=== PATIENT | female | born 2000 | race Asian ===

== ENCOUNTER 2019-02-12 19:44 | Emergency (ER) | payer OTHER, SELFPAY ==
[2019-02-12 19:49] VITALS: BP 120/72; PULSE 105; RESP 16; TEMP 36.5; O2SAT 100; BMI 18.6
[2019-02-12 20:16] LABS: Influenza A and B by PCR Rapid Negative (Negative)
--- NOTE | 2019-02-12 21:50 | ED.URI ---
HPI - URI/Sore Throat General Chief Complaint: Upper Respiratory Symptoms Stated Complaint: SORE THROAT, BACK AND HEAD PAIN, Time Seen by Provider: 02/12/19 20:14 Source: patient Mode of arrival: ambulatory Limitations: no limitations History of Present Illness HPI Narrative: 17-year-old female who is without any vaginal bleeding or loss of fluid or cramping here for evaluation of upper respiratory infection like symptoms to include sore throat, sinus congestion, headaches. She has not tried anything for symptoms prior to arrival Related Data Allergies Allergy/AdvReac Type Severity Reaction Status Date / Time Penicillins Allergy Verified 02/12/19 19:48 Review of Systems Constitutional Reports fever(s) and Reports headache(s) ENT Ears, Nose, Mouth, and Throat: Reports headache(s), Reports sinus pressure, Reports sore throat and Denies throat swelling Respiratory Reports cough and Denies wheezing Gastrointestinal Gastrointestinal: Denies cramping Genitourinary Denies dysuria and Denies vaginal discharge Integumentary/Breasts Denies rash Neurologic Reports headache(s) Allergic/Immunologic Denies urticaria, Denies throat swelling and Denies wheezing REPLACED BY [facility] Medical History Healthy adult (Acute) Social History Smoking Status: Never smoker Social History Smoking Status: Never smoker Exam Initial Vital Signs Initial Vital Signs: Vital Signs Temperature 97.7 F 02/12/19 19:49 Pulse Rate 105 H 02/12/19 19:49 Respiratory Rate 16 02/12/19 19:49 Blood Pressure 120/72 02/12/19 19:49 Pulse Oximetry 100 02/12/19 19:49 Const General: cooperative, healthy appearing, comfortable, well developed, well groomed and No acute distress Orientation: alert, awake and oriented x3 HENMT Head: normal to inspection and normocephalic Resp Effort & Inspection: normal respiratory effort Auscultation: clear to auscultation bilaterally Cardio Rate: tachycardic Rhythm: regular rhythm Pulses: radial pulses present Skin Lesions: no lesions Rashes: no rashes Neuro General: alert, awake and oriented x3 Cognition: normal cognition Speech: speech normal Extrem General: normal to inspection and capillary refill normal Psych Appearance: grossly normal and well kempt Course Orders Ordered: ED Orders 02/12/19 19:50 FLU A and B [Influenza A and B by PCR Rapid] Stat Vital Signs - 8 hr 02/12/19 22:08 Pulse Rate 105 H Blood Pressure 105/68 Pulse Oximetry 98 MDM - URI/Sore Throat Lab Data Attestation: I reviewed the patient's lab results. Lab Results 02/12/19 Range/Units 19:50 Influenza A & B (PCR) Negative (Negative) Point of Care Testing Rapid Strep A Negative [facility] Narrative Medical decision making narrative: Patient's flu is negative, lungs are clear, afebrile, not in any respiratory distress, I feel given her status and her physical exam that a chest x-ray is not warranted. I did discuss this with her. She did express understanding and agreement. No indication for antibiotics. Suspect viral URI. Patient given return precautions. She expressed understanding and agreement with plan. Discharge Plan Departure Patient Disposition: Home Clinical Impression: Upper respiratory infection Qualifiers: URI type: unspecified URI Qualified Code(s): J06.9 - Acute upper respiratory infection, unspecified Discharge Date/Time: 02/12/19 22:09 Interventions: ED Discharge Assessment Last Done: 02/12/19 22:08 Instructions: DI for Viral Upper Respiratory Infection -- Adult Activity Restrictions/Additional Instructions: Recommend you start taking a decongestant such as Claritin on a daily basis. Continue your vitamins. Contact your OB provider when he returns home. Return to the emergency department for any new or worsening symptoms
[2019-02-12 22:08] VITALS: BP 105/68; PULSE 105; O2SAT 98
== END 2019-02-12 22:09 | disposition home or self-care (01) ==
PROVIDERS: Emergency Provider Emergency Medicine
DX: J06.9 Acute upper respiratory infection, unspecified (principal); Z33.1 Pregnant state, incidental
CPT/HCPCS: 87400; 87880; 99282